=== PATIENT | female | born 1980 | race Hispanic/Latino ===

== ENCOUNTER 2022-08-25 07:52 | Inpatient (IN) | payer OTHER ==
[~2022-08-25] VITALS: Ht 149.9 cm; Wt 56.2 kg
[2022-08-25 08:30] LABS: BASOPHILS % (AUTO) 0.2 % (0.0-5.0); EOSINOPHILS % (AUTO) 0.1 % (0.0-8.0); HEMATOCRIT 37.5 % (36-48); LYMPHOCYTES % (AUTO) 2.8 % (21.0-51.0); MEAN CORPUSCULAR HEMOGLOBIN 28.7 pg (27.0-33.0); MEAN CORPUSCULAR HGB CONC 34.4 g/dL (32.0-36.0); MEAN CORPUSCULAR VOLUME 83.5 fL (79-99); MONOCYTES % (AUTO) 5.7 % (3.0-13.0); PLATELET COUNT (AUTO) 275 K/uL (130-400); RED BLOOD CELL COUNT(AUTO) 4.49 MIL/uL (4.00-5.50); RED CELL DISTRIBUTION WIDTH 13.3 % (11.0-15.5); WHITE BLOOD COUNT (AUTO) 18.9 K/uL (4.8-10.8)
[2022-08-25 08:41] LABS: APPEARANCE,URINE CLEAR (CLEAR); BILIRUBIN,URINE NEGATIVE (NEGATIVE); COLOR,URINE LIGHT-YELLOW (YELLOW); GLUCOSE, URINE (UA) NEGATIVE (NEGATIVE); KETONES,URINE NEGATIVE (NEGATIVE); LEUKOCYTE ESTERASE ,URINE NEGATIVE Leu/uL (NEGATIVE); NITRATE,URINE NEGATIVE (NEGATIVE); OCCULT BLOOD,URINE NEGATIVE (NEGATIVE); PROTEIN,URINE NEGATIVE (NEGATIVE)
[2022-08-25 08:44] LABS: CREATININE 0.7 mg/dL (0.5-1.5); POTASSIUM 3.9 mmol/L (3.5-5.1)
[2022-08-25 09:00] LABS: ALBUMIN 4.1 g/dL (3.5-5.0); TOTAL PROTEIN, SERUM 8.1 g/dL (6.0-8.3)
[2022-08-25] MEDS ORDERED: 0.9%NACL 1000ML 1,000 ML IV ONE (09:30)
[2022-08-25] MEDS ORDERED: ONDANSETRON 4MG INJ IVP ONE (09:30)
[2022-08-25] MEDS ORDERED: MORPHINE 2 MG SYG IVP ONE (09:30)
[2022-08-25 10:17] LABS: INR 0.94 (0.85-1.15); PROTHROMBIN TIME 10.3 SEC (9.6-11.6)
[2022-08-25 10:18] LABS: PARTIAL THROMBOPLASTIN TIME 22.8 SEC (26.3-35.5)
[2022-08-25] MEDS ORDERED: IOHEXOL 350 MG/ML 100ML INFUS..BTL IV ONE (10:20)
[2022-08-25] MEDS: 0.9%NACL 1000ML 1,000 ML IV SCH ×3 (10:53→23:49)
[2022-08-25] MEDS ORDERED: ACETAMINOPHEN 325 MG TAB PO PRN ×2 (11:00)
[2022-08-25] MEDS ORDERED: HYDROMORPHONE 0.5 MG SYG (0.5MG/0.5ML) IVP PRN (11:00)
[2022-08-25] MEDS ORDERED: ONDANSETRON 4MG INJ IV PRN (11:00)
[2022-08-25] MEDS ORDERED: HYDROMORPHONE 0.5 MG SYG (0.5MG/0.5ML) IM PRN (11:00)
[2022-08-25 13:31] LABS: HEMOGLOBIN A1C 6.2 % (4.0-6.0)
[2022-08-25 13:35] LABS: MAGNESIUM 1.9 mg/dL (1.80-2.40); PHOSPHORUS 3.4 mg/dL (2.5-4.9)
[2022-08-25 15:00] VITALS: BP 110/71
[2022-08-25 16:22] LABS: HEPATITIS A IGM ANTIBODY Non-Reactive (Nonreactive); HEPATITIS B CORE IGM ANTIBODY Non-Reactive (Negative); HEPATITIS B SURFACE ANTIGEN Non-Reactive (Nonreactive); HEPATITIS C ANTIBODY Non-Reactive (Nonreactive)
[2022-08-25 20:00] VITALS: BP 113/69
[2022-08-25] MEDS: FAMOTIDINE 20MG VIAL IV SCH (20:26)
[2022-08-26] VITALS: BP 94/57
[2022-08-26 04:00] VITALS: BP 87/56
[2022-08-26] MEDS: 0.9%NACL 1000ML 1,000 ML IV SCH ×4 (07:00→22:31)
[2022-08-26 08:29] VITALS: BP 93/49
[2022-08-26] MEDS: FAMOTIDINE 20MG VIAL IV SCH ×2 (08:30→20:16)
[2022-08-26] MEDS: ENOXAPARIN SODIUM 40 MG/0.4 ML SYRINGE SQ SCH (08:32)
[2022-08-26 08:50] LABS: BASOPHILS % (AUTO) 0.6 % (0.0-5.0); EOSINOPHILS % (AUTO) 2.4 % (0.0-8.0); HEMATOCRIT 33.9 % (36-48); LYMPHOCYTES % (AUTO) 17.7 % (21.0-51.0); MEAN CORPUSCULAR HEMOGLOBIN 28.8 pg (27.0-33.0); MEAN CORPUSCULAR VOLUME 87.1 fL (79-99); MONOCYTES % (AUTO) 5.2 % (3.0-13.0); NEUTROPHILS % (AUTO) 73.9 % (40.0-77.0); PLATELET COUNT (AUTO) 238 K/uL (130-400); RED BLOOD CELL COUNT(AUTO) 3.89 MIL/uL (4.00-5.50); WHITE BLOOD COUNT (AUTO) 10.5 K/uL (4.8-10.8)
[2022-08-26 09:00] LABS: CREATININE 0.5 mg/dL (0.5-1.5); POTASSIUM 3.8 mmol/L (3.5-5.1)
[2022-08-26 09:04] LABS: ALBUMIN 3.2 g/dL (3.5-5.0); TOTAL PROTEIN, SERUM 6.7 g/dL (6.0-8.3)
[2022-08-26 12:03] VITALS: BP 89/56
[2022-08-26 16:25] VITALS: BP 100/62
[2022-08-26 20:00] VITALS: BP 109/72
[2022-08-27] VITALS (8 sets, daily range): BP systolic 88–118; BP diastolic 57–78
[2022-08-27] MEDS: 0.9%NACL 1000ML 1,000 ML IV SCH ×3 (02:00→20:46)
[2022-08-27 05:03] LABS: BASOPHILS % (AUTO) 0.7 % (0.0-5.0); EOSINOPHILS % (AUTO) 8.5 % (0.0-8.0); MEAN CORPUSCULAR HEMOGLOBIN 28.6 pg (27.0-33.0); MEAN CORPUSCULAR VOLUME 86.6 fL (79-99); MONOCYTES % (AUTO) 7.9 % (3.0-13.0); NEUTROPHILS % (AUTO) 58.6 % (40.0-77.0); PLATELET COUNT (AUTO) 239 K/uL (130-400); RED BLOOD CELL COUNT(AUTO) 3.81 MIL/uL (4.00-5.50); RED CELL DISTRIBUTION WIDTH 13.8 % (11.0-15.5); WHITE BLOOD COUNT (AUTO) 7.6 K/uL (4.8-10.8)
[2022-08-27 05:15] LABS: CREATININE 0.5 mg/dL (0.5-1.5); POTASSIUM 4.2 mmol/L (3.5-5.1); TOTAL PROTEIN, SERUM 6.7 g/dL (6.0-8.3)
[2022-08-27 05:47] LABS: LIPASE 331 U/L (114-286)
[2022-08-27 05:49] LABS: ACETAMINOPHEN < 3 mcg/mL (10-30)
[2022-08-27] MEDS: FAMOTIDINE 20MG VIAL IV SCH ×2 (08:42→20:45)
[2022-08-27] MEDS: ENOXAPARIN SODIUM 40 MG/0.4 ML SYRINGE SQ SCH (08:47)
[2022-08-27] MEDS: MINERAL OIL/PETROLATUM,WHITE 454 GM CREAM.GM. TP SCH (20:48)
[2022-08-28 03:50] VITALS: BP 92/57
[2022-08-28 06:16] LABS: BASOPHILS % (AUTO) 0.9 % (0.0-5.0); EOSINOPHILS % (AUTO) 9.6 % (0.0-8.0); HEMATOCRIT 33.6 % (36-48); LYMPHOCYTES % (AUTO) 28.9 % (21.0-51.0); MEAN CORPUSCULAR HEMOGLOBIN 28.5 pg (27.0-33.0); MEAN CORPUSCULAR HGB CONC 33.6 g/dL (32.0-36.0); MEAN CORPUSCULAR VOLUME 84.6 fL (79-99); MONOCYTES % (AUTO) 8.5 % (3.0-13.0); NEUTROPHILS % (AUTO) 51.8 % (40.0-77.0); PLATELET COUNT (AUTO) 282 K/uL (130-400); RED BLOOD CELL COUNT(AUTO) 3.97 MIL/uL (4.00-5.50); RED CELL DISTRIBUTION WIDTH 13.4 % (11.0-15.5); WHITE BLOOD COUNT (AUTO) 6.5 K/uL (4.8-10.8)
[2022-08-28 06:38] LABS: ALBUMIN 3.2 g/dL (3.5-5.0); CREATININE 0.6 mg/dL (0.5-1.5); POTASSIUM 3.6 mmol/L (3.5-5.1); TOTAL PROTEIN, SERUM 6.9 g/dL (6.0-8.3)
[2022-08-28 07:20] VITALS: BP_SYST 112; BP_SYST 91; BP_DIAS 28; BP_DIAS 65
[2022-08-28] MEDS: FAMOTIDINE 20MG VIAL IV SCH (10:05)
[2022-08-28] MEDS: ENOXAPARIN SODIUM 40 MG/0.4 ML SYRINGE SQ SCH (10:05)
[2022-08-28] MEDS: 0.9%NACL 1000ML 1,000 ML IV SCH (10:18)
[2022-08-28 10:20] LABS: CRP QUANTITATIVE 9.8 mg/L (0.00-9.0)
[2022-08-28] MEDS: MINERAL OIL/PETROLATUM,WHITE 454 GM CREAM.GM. TP SCH (10:21)
[2022-08-28 10:50] VITALS: BP 113/67
[2022-08-28 13:42] LABS: CREATININE 0.7 mg/dL (0.5-1.5); POTASSIUM 3.5 mmol/L (3.5-5.1)
[2022-08-28 16:00] VITALS: BP 104/60
== END 2022-08-28 18:10 | disposition home or self-care (01) | DRG 440 ==
LOC: EDH 07:52 → EDHIP 07:53 → 3BH 15:00
PROVIDERS: ADMIT Hospitalist; ATTEND Hospitalist
DX: K85.90 Acute pancreatitis without necrosis or infection, unspecified (principal); E86.1 Hypovolemia; T22.111A Burn of first degree of right forearm, initial encounter; X08.8XXA Exposure to other specified smoke, fire and flames, initial encounter; Y93.89 Activity, other specified; Z90.49 Acquired absence of other specified parts of digestive tract; Y92.89 Other specified places as the place of occurrence of the external cause; Y99.8 Other external cause status; Z82.49 Family history of ischemic heart disease and other diseases of the circulatory system
CPT/HCPCS: 36415; 74177; 76705; 80048; 80053; 80061; 80074; 81003; 81025; 82784; 83036; 83516; 83605; 83690; 83735; 84100; 84145; 84484; 85025; 85610; 85730; 86038; 86140; 86215; 86235; 86255; 93005; G0378; J1650; J2405; J3490; J7030; Q9967